=== PATIENT | female | born 1955 | race Caucasian/White ===

== ENCOUNTER → 2024-06-22 09:33 | Outpatient (REF) | payer BC, SELFPAY | LOC: RAD 09:33 | PROVIDERS: ATTENDING PHYSICIAN Internal Medicine Rheumatology; FAMILY PHYSICIAN Family Medicine | DX: M81.0 Age-related osteoporosis without current pathological fracture (principal) | CPT/HCPCS: 77080 ==

== ENCOUNTER → 2024-11-01 10:19 | Outpatient (REF) | payer BC, SELFPAY | LOC: RCS 10:19 | PROVIDERS: ATTENDING PHYSICIAN Family Medicine | DX: R00.2 Palpitations (principal) | CPT/HCPCS: 93225; 93226 ==

== ENCOUNTER → 2024-11-23 12:48 | Outpatient (REF) | payer BC, SELFPAY | LOC: RCS 12:48 | PROVIDERS: ATTENDING PHYSICIAN Family Medicine | DX: R00.2 Palpitations (principal) | CPT/HCPCS: 93306 ==